=== PATIENT | male | born 1945 | race Caucasian/White ===

== ENCOUNTER 2019-09-29 14:14 | Emergency (ER) | payer OTHER ==
[2019-09-29] MEDS ORDERED: TETANUS & DIPHTHERIA TOX,ADULT 0.5 ML VIAL ONE (14:53)
[2019-09-29] MEDS ORDERED: LIDOCAINE 1% MPF 5 ML VIAL ONE (14:53)
--- NOTE | 2019-09-29 16:35 | ER ---
Nurse's Notes [facility] Name: Terrell Collazo Age: 73 yrs Sex: Male : 1945 Arrival Date: 09/29/2019 Time: 14:15 Bed 15 Private MD: Ras Osborne R Diagnosis: Laceration with foreign body of right little finger without damage to nail;Abrasion of right hand Presentation: 09/29 14:31 Presenting complaint: Patient states: got knocked over by his son's dogs, fell onto iw right hand, skin tears noted to hand, avulsion to right pinky that might need stitches. Transition of care: patient was not received from another setting of care. Onset of symptoms was September 29, 2019. Risk Assessment: Do you want to hurt yourself or someone else? Patient reports no desire to harm self or others. Initial Sepsis Screen: Does the patient meet any 2 criteria? No. Patient's initial sepsis screen is negative. Does the patient have a suspected source of infection? No. Patient's initial sepsis screen is negative. Care prior to arrival: None. 14:31 Method Of Arrival: Ambulatory iw 14:31 Acuity: TAM 4 iw Historical: - Allergies: 14:36 No Known Allergies; iw - Home Meds: 14:36 atorvastatin oral oral once daily [Active]; Warfarin Oral [Active]; iw - PMHx: 14:36 Idiopathic hypertrophic subaortic stenosis; Hyperlipidemia; iw - PSHx: 14:36 None; iw - Immunization history:: Adult Immunizations not up to date. - Social history:: Smoking status: Patient uses tobacco products, smokes one pack cigarettes per day. - Ebola Screening: : Patient negative for fever greater than or equal to 101.5 degrees Fahrenheit, and additional compatible Ebola Virus Disease symptoms Patient denies exposure to infectious person Patient denies travel to an Ebola-affected area in the 21 days before illness onset No symptoms or risks identified at this time. Screenin:36 Abuse screen: Denies threats or abuse. Denies injuries from another. Nutritional ca1 screening: No deficits noted. Tuberculosis screening: No symptoms or risk factors identified. Fall Risk Fall in past 12 months (25 points). Assessment: 14:37 General: Appears in no apparent distress. comfortable, Behavior is calm, cooperative, ca1 appropriate for age. Pain: Complains of pain in right hand Pain currently is 3 out of 10 on a pain scale. Neuro: Level of Consciousness is awake, alert, obeys commands, Oriented to person, place, time, situation, Appropriate for age. Derm: Skin is healthy with good turgor, Skin is pink, warm \T\ dry. Musculoskeletal: Circulation, motion, and sensation intact. Capillary refill < 3 seconds, Range of motion: intact in all extremities. Injury Description: Abrasion sustained to right hand is dirty, was sustained 30-60 minutes ago. Avulsion sustained to palmar aspect of middle phalanx of right little finger is partial was sustained 30-60 minutes ago. 15:40 Reassessment: Patient appears in no apparent distress at this time. Patient is alert, ca1 oriented x 3, equal unlabored respirations, skin warm/dry/pink. 16:45 Reassessment: Patient appears in no apparent distress at this time. Patient is alert, ca1 oriented x 3, equal unlabored respirations, skin warm/dry/pink. Vital Signs: 14:31 BP 111 / 78; Pulse 73; Resp 17 S; Temp 97.9(O); Pulse Ox 97% on R/A; ca1 15:40 BP 105 / 68; Pulse 91; Resp 18 S; Pulse Ox 98% on R/A; ca1 16:45 BP 117 / 64; Pulse 89; Resp 17 S; Pulse Ox 98% on R/A; ca1 ED Course: 14:15 Patient arrived in ED. mr 14:15 Ras Osborne MD is Private Physician. mr 14:25 Lori Woodruff RN is Primary Nurse. ca1 14:33 Triage completed. iw 14:36 Arm band placed on. iw 14:36 Patient has correct armband on for positive identification. Bed in low position. Call ca1 light in reach. Side rails up X 1. Pulse ox on. NIBP on. 14:37 John Govea NP is PHCP. pm1 14:37 Patient did not have IV access during this emergency room visit. ca1 14:38 Raghu Hernandez MD is Attending Physician. pm1 15:40 Wound care: to laceration located on palmar aspect of middle phalanx of right little ca1 finger was cleaned with Hibiclens, soaked in normal saline solution, debrided using Betadine scrub, irrigated with normal saline, Patient tolerated well. 16:33 Jonathan Sarmiento MD is Referral Physician. pm1 16:39 Assist provider with laceration repair on palmar aspect of middle phalanx of right ca1 little finger that was between 7.6 to 12.5 cm using sutures. Set up tray. Performed by John Govea EMS DRIVER Dressed with 4X4s, Kerlix, Patient tolerated well. 17:00 Aluminum finger splint applied to palmar aspect of middle phalanx of right little ca1 finger. 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 Exp: ca1 03/11/2021. Lot #: [id number]. } Route: IM; Site: right deltoid; 16:21 Follow up: Response: No adverse reaction ca1 15:30 Drug: Lidocaine (1 %) 5 ml {Note: by TERRI Lopez.} Volume: 5 ml; Route: Infiltration; ca1 Outcome: 16:34 Discharge ordered by MD. pm1 17:13 Discharged to home ambulatory, with family. ca1 17:13 Condition: stable 17:13 Discharge instructions given to patient, Instructed on discharge instructions, follow up and referral plans. medication usage, wound care, Demonstrated understanding of instructions, follow-up care, medications, wound care, Prescriptions given X 1. 17:13 Patient left the ED. ca1 Signatures: Daphney Rdz Irene, RAJ ANTHONY iw John Govea NP EMS DRIVER pm1 Lori Woodruff RN RN ca1 Corrections: (The following items were deleted from the chart) 16:40 14:37 No provider procedures requiring assistance completed. ca1 ca1
--- NOTE | 2019-09-29 16:35 | EDPHYS ---
Physician Documentation [facility] Name: Terrell Collazo Age: 73 yrs Sex: Male : 1945 Arrival Date: 09/29/2019 Time: 14:15 Bed 15 Private MD: Ras Osborne R ED Physician Raghu Hernandez HPI: 09/29 16:32 This 73 yrs old Male presents to ER via Ambulatory with complaints of Fall pm1 Injury, Hand Injury. 16:32 Details of fall: The patient fell and struck a concrete surface. Onset: The pm1 symptoms/episode began/occurred just prior to arrival. Associated injuries: The patient sustained palmar aspect of middle phalanx of right little finger, laceration. Severity of symptoms: in the emergency department the symptoms are actually worse. The patient has not experienced similar symptoms in the past. The patient has not recently seen a physician. Patient tripped by his family members dogs and fell forward with right hand outstretched resulting in laceration to right little finger and abrasions to dorsum of right hand and wrist. No headache, head injury, neck pain, LOC. Able to move right hand, right fingers, right wrist elbow, and right shoulder full range of motion. Historical: - Allergies: 14:36 No Known Allergies; iw - Home Meds: 14:36 atorvastatin oral oral once daily [Active]; Warfarin Oral [Active]; iw - PMHx: 14:36 Idiopathic hypertrophic subaortic stenosis; Hyperlipidemia; iw - PSHx: 14:36 None; iw - Immunization history:: Adult Immunizations not up to date. - Social history:: Smoking status: Patient uses tobacco products, smokes one pack cigarettes per day. - Ebola Screening: : Patient negative for fever greater than or equal to 101.5 degrees Fahrenheit, and additional compatible Ebola Virus Disease symptoms Patient denies exposure to infectious person Patient denies travel to an Ebola-affected area in the 21 days before illness onset No symptoms or risks identified at this time. ROS: 16:32 Constitutional: Negative for fever, chills, and weight loss, Neck: Negative for injury, pm1 pain, and swelling, Cardiovascular: Negative for chest pain, palpitations, and edema, Respiratory: Negative for shortness of breath, cough, wheezing, and pleuritic chest pain, Abdomen/GI: Negative for abdominal pain, nausea, vomiting, diarrhea, and constipation, Back: Negative for injury and pain. 16:32 Neuro: Negative for headache, weakness, numbness, tingling, and seizure. 16:32 MS/extremity: Positive for laceration, pain, of the palmar aspect of middle phalanx of right little finger, Negative for decreased range of motion, deformity. 16:32 Skin: Positive for laceration(s), of the palmar aspect of middle phalanx of right little finger. Exam: 16:32 Constitutional: This is a well developed, well nourished patient who is awake, alert, pm1 and in no acute distress. Head/Face: Normocephalic, atraumatic. Neck: Trachea midline, no thyromegaly or masses palpated, and no cervical lymphadenopathy. Supple, full range of motion without nuchal rigidity, or vertebral point tenderness. No Meningismus. Chest/axilla: Normal chest wall appearance and motion. Nontender with no deformity. No lesions are appreciated. Cardiovascular: Regular rate and rhythm with a normal S1 and S2. No gallops, murmurs, or rubs. Normal PMI, no JVD. No pulse deficits. Respiratory: Lungs have equal breath sounds bilaterally, clear to auscultation and percussion. No rales, rhonchi or wheezes noted. No increased work of breathing, no retractions or nasal flaring. Abdomen/GI: Soft, non-tender, with normal bowel sounds. No distension or tympany. No guarding or rebound. No evidence of tenderness throughout. Back: No spinal tenderness. No costovertebral tenderness. Full range of motion. 16:32 Skin: Appearance: normal except for affected area, injury, abrasion(s), small abrasion noted, of the dorsum of right hand and dorsal aspect of right wrist, laceration(s), the wound is approximately 2 cm(s), of the palmar aspect of middle phalanx of right little finger. 16:32 Neuro: Orientation: is normal, Motor: is normal, moves all fours, Gait: is steady, at a normal pace, without difficulty. Vital Signs: 14:31 BP 111 / 78; Pulse 73; Resp 17 S; Temp 97.9(O); Pulse Ox 97% on R/A; ca1 15:40 BP 105 / 68; Pulse 91; Resp 18 S; Pulse Ox 98% on R/A; ca1 16:45 BP 117 / 64; Pulse 89; Resp 17 S; Pulse Ox 98% on R/A; ca1 Laceration: 21:50 Wound Repair of 2cm ( 0.8in ) subcutaneous laceration to palmar aspect of middle pm1 phalanx of right little finger. Irregularly shaped.. Distal neuro/vascular/tendon intact. Anesthesia: Digital block administered with 3 mls of 1% lidocaine. Wound prep: Extensive cleansing with hibiclenz by me, Wound irrigation with saline by me, Particulate matter removal of dirt, Wound explored extensively, Copious irrigation. Skin closed with 6 5-0 Prolene using simple sutures and sterile technique. Dressed with 4x4's. Patient tolerated well. MDM: 14:38 Patient medically screened. pm1 16:32 Data reviewed: vital signs. Data interpreted: Pulse oximetry: on room air is 98 %. pm1 Interpretation: normal. Counseling: I had a detailed discussion with the patient and/or guardian regarding: the historical points, exam findings, and any diagnostic results supporting the discharge/admit diagnosis, the need for outpatient follow up, a hand specialist, to return to the emergency department if symptoms worsen or persist or if there are any questions or concerns that arise at home. 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 Exp: ca1 03/11/2021. Lot #: [id number]. } Route: IM; Site: right deltoid; 16:21 Follow up: Response: No adverse reaction ca1 15:30 Drug: Lidocaine (1 %) 5 ml {Note: by TERRI Lopez.} Volume: 5 ml; Route: Infiltration; ca1 Disposition: 09/30 07:41 Co-signature as Attending Physician, Raghu Hernandez MD I agree with the assessment and kdr plan of care. Disposition: 09/29/19 16:34 Discharged to Home. Impression: Laceration with foreign body of right little finger without damage to nail, Abrasion of right hand. - Condition is Stable. - Discharge Instructions: Abrasion, Cast or Splint Care, Adult, Laceration Care, Adult. - Prescriptions for Keflex 500 mg Oral Capsule - take 1 capsule by ORAL route every 12 hours for 10 days; 20 capsule. - Medication Reconciliation Form, Thank You Letter, Antibiotic Education, Prescription Opioid Use form. - Follow up: Emergency Department; When: As needed; Reason: Worsening of condition. Follow up: Private Physician; When: 10 - 14 days; Reason: Recheck today's complaints, Continuance of care, Re-evaluation by your physician. Follow up: Jonathan Sarmiento MD; When: 2 - 3 days; Reason: Recheck today's complaints, Continuance of care, Re-evaluation by your physician. - Problem is new. - Symptoms have improved. Signatures: Raghu Hernandez MD MD kdr Dimple Sousa RN RN iw John Govea, TERRI GLASS FURNACE OPERATOR pm1 Accampbell, RAJ Sandoval RN ca1 Corrections: (The following items were deleted from the chart) 09/29 16:34 16:34 09/29/2019 16:34 Discharged to Home. Impression: Laceration with foreign body of pm1 right little finger without damage to nail. Condition is Stable. Forms are Medication Reconciliation Form, Thank You Letter, Antibiotic Education, Prescription Opioid Use. Follow up: Emergency Department; When: As needed; Reason: Worsening of condition. Follow up: Private Physician; When: 10 - 14 days; Reason: Recheck today's complaints, Continuance of care, Re-evaluation by your physician. Follow up: Jonathan Sarmiento; When: 2 - 3 days; Reason: Recheck today's complaints, Continuance of care, Re-evaluation by your physician. Problem is new. Symptoms have improved. pm1 17:06 16:31 Dermabond ordered. pm1 pm1 17:13 16:34 09/29/2019 16:34 Discharged to Home. Impression: Laceration with foreign body of ca1 right little finger without damage to nail; Abrasion of right hand. Condition is Stable. Forms are Medication Reconciliation Form, Thank You Letter, Antibiotic Education, Prescription Opioid Use. Follow up: Emergency Department; When: As needed; Reason: Worsening of condition. Follow up: Private Physician; When: 10 - 14 days; Reason: Recheck today's complaints, Continuance of care, Re-evaluation by your physician. Follow up: Jonathan Sarmiento; When: 2 - 3 days; Reason: Recheck today's complaints, Continuance of care, Re-evaluation by your physician. Problem is new. Symptoms have improved. pm1
[2019-09-29] MEDS ORDERED: DERMABOND SKIN ADHESIVE TOP ONE (16:43)
[2019-09-29 17:35] VITALS: TEMP 97.9
[2019-09-29 17:37] VITALS: O2SAT 98
[2019-09-29 17:38] VITALS: BP 117/64
== END 2019-09-29 17:13 | disposition home or self-care (01) ==
LOC: ER 14:14
PROC: 0JQJ0ZZ Repair Right Hand Subcutaneous Tissue and Fascia, Open Approach (ICD-10-PCS; principal; 2019-09-29)
DX: S61.216A Laceration without foreign body of right little finger without damage to nail, initial encounter (principal); W18.31XA Fall on same level due to stepping on an object, initial encounter; Y93.89 Activity, other specified; Y92.9 Unspecified place or not applicable
CPT/HCPCS: 90471; 90714; 99284